=== PATIENT | female | born 2000 | race Caucasian/White ===

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

== ENCOUNTER 2021-01-01 14:10 | Emergency (ER) | payer OTHER ==
[2021-01-01 14:39] LABS: BILIRUBIN NEGATIVE (NEGATIVE); BLOOD NEGATIVE Ery/uL (NEGATIVE); CLARITY CLEAR (CLEAR); COLOR YELLOW (YELLOW); GLUCOSE (U) NORMAL (NORMAL); LEUKOCYTES NEGATIVE Leu/uL (NEGATIVE); NITRITE NEGATIVE (NEGATIVE); PROTEIN NEGATIVE (NEGATIVE); SPECIFIC GRAVITY >=1.030 (1.001-1.030); UROBILINOGEN 0.2 mg/dL (0.2-1.0)
[2021-01-01 15:36] LABS: BASOPHIL 0.6 % (0-2); HCT 40.8 % (37.0-47.0); HGB 13.5 g/dl (12.5-16.0); LYMPHOCYTE 26.9 % (15-48); MCH 30.1 pg (25.0-31.0); MCHC 33.1 g/dL (32.0-36.0); MCV 90.9 fL (78.0-100.0); MONOCYTE 6.3 % (0-12); NEUTROPHIL 62.1 % (41-80); NRBC 0; PLT 237 K/uL (150-400); RBC 4.49 M/uL (4.20-5.40); RDW 12.7 % (11.5-14.0); WBC 6.7 K/uL (4.0-10.5)
[2021-01-01 15:55] LABS: ALBUMIN 4.2 g/dL (3.4-5.0); BILIRUBIN - TOTAL 0.4 mg/dL (0.2-1.0); BUN/CREAT RATIO (CALC) 8.6 RATIO; CREATININE 0.7 mg/dL (0.51-0.95); GLOBULIN (CALCULATION) 3.3 g/dL; TOTAL PROTEIN 7.5 g/dL (6.4-8.2)
== END 2021-01-01 16:57 | disposition left against medical advice (07) ==
LOC: FER 14:10
PROVIDERS: Emergency Medicine
DX: R10.9 Unspecified abdominal pain (principal); R11.0 Nausea; R19.7 Diarrhea, unspecified; R63.0 Anorexia; E03.9 Hypothyroidism, unspecified; Z79.899 Other long term (current) drug therapy; Z53.8 Procedure and treatment not carried out for other reasons
CPT/HCPCS: 36415; 80053; 81003; 82150; 83690; 85025; 99284

== ENCOUNTER 2021-05-12 10:24 | Emergency (ER) | payer OTHER ==
[2021-05-12] MEDS ORDERED: NORCO 5-325 TA1 EACH PO (11:10)
[2021-05-12] MEDS ORDERED: IBUPROFEN800 MG PO (11:10)
== END 2021-05-12 11:50 | disposition home or self-care (01) ==
LOC: FER 10:24
DX: K64.5 Perianal venous thrombosis (principal)
CPT/HCPCS: 99282